=== PATIENT | female | born 1955 | race Caucasian/White ===

== ENCOUNTER 2021-03-06 12:45 | Inpatient (IN) | payer MEDICARE, OTHER ==
[~2021-03-06] VITALS: Ht 160 cm; Wt 97.1 kg
[2021-03-06] MEDS ORDERED: LOP25T PO (15:45)
[2021-03-06] MEDS ORDERED: ALPR-624 PO (15:45)
[2021-03-06] MEDS ORDERED: PANT40TA54 PO (15:45)
[2021-03-06] MEDS ORDERED: RIME75TA PO (15:45)
[2021-03-06] MEDS ORDERED: EST1T PO (15:45)
[2021-03-06] MEDS ORDERED: AMIT-189 PO (15:45)
[2021-03-06] MEDS ORDERED: HYDR-3965 PO (15:45)
[2021-03-06] MEDS ORDERED: WARF3TAB56 PO (15:45)
[2021-03-06] MEDS ORDERED: FLUO20CA39 PO (15:45)
[2021-03-06] MEDS ORDERED: TOLT2TAB20 PO (15:45)
[2021-03-06] MEDS ORDERED: CHOL500049 PO (15:45)
[2021-03-06 16:16] LABS: BASOPHILS # (AUTO) 0.1 X10'3 (0-0.2); BASOPHILS % (AUTO) 1.2 % (0-1); EOSINOPHILS # (AUTO) 0.2 X10'3 (0-0.9); EOSINOPHILS % (AUTO) 3.3 % (0-6); LYMPHOCYTES # (AUTO) 1.5 X10'3 (1.1-4.8); LYMPHOCYTES % (AUTO) 30.9 % (21-51); MEAN CORPUSCULAR HEMOGLOBIN 30.8 PG (27.0-31.0); MEAN CORPUSCULAR HGB CONC 33.6 g/dL (33.0-36.5); MEAN CORPUSCULAR VOLUME 91.4 FL (78-98); MEAN PLATELET VOLUME 9.2 FL (7.4-10.4); MONOCYTES # (AUTO) 0.3 X10'3 (0-0.9); MONOCYTES % (AUTO) 6.3 % (2-12); NEUTROPHILS # (AUTO) 2.9 X10'3 (1.8-7.7); NEUTROPHILS % (AUTO) 58.3 % (42-75); PRE OP HEMATOCRIT 44.8 % (35.0-45.0); PRE OP HEMOGLOBIN 15.1 g/dL (12.0-16.0); PRE OP PLATELET COUNT 238 X10'3 (140-440); RED CELL DISTRIBUTION WIDTH 15.9 % (11.5-14.5)
[2021-03-06 16:22] LABS: PARTIAL THROMBOPLASTIN TIME 40 SECONDS (22-32)
[2021-03-06 16:24] LABS: CLARITY,URINE CLOUDY (Clear); COLOR,URINE YELLOW (Yellow); GLUCOSE, URINE NEGATIVE (Neg); KETONES,URINE NEGATIVE (Neg); PROTEIN,URINE NEGATIVE (Neg); UA COLLECTION TYPE CLN CATCH MIDSTREAM
[2021-03-06 16:25] LABS: LEUKOCYTE ESTERASE ,URINE NEGATIVE (Neg); NITRITES, URINE NEGATIVE (Neg); OCCULT BLOOD,URINE TRACE-LYSED (Neg); UROBILINOGEN,URINE 0.2 E.U/dL (0.2-1.0)
[2021-03-06 16:25] LABS: ALBUMIN 3.6 G/DL (3.4-5.0); ALBUMIN/GLOBULIN RATIO 0.8 (1.1-1.5); ALKALINE PHOSPHATASE 73 IU/L (46-116); BLOOD UREA NITROGEN 19 MG/DL (7-18); BUN/CREATININE RATIO 17.4 (6.6-38.0); CALCIUM 9.4 MG/DL (8.5-10.1); CHLORIDE 104 MMOL/L (99-107); CREATININE 1.09 MG/DL (0.40-0.90); PRE OP ALT 23 U/L (30-65); PRE OP ANION GAP 10 (8-16); PRE OP AST 22 U/L (10-37); PRE OP BILIRUB, TOTAL 0.4 MG/DL (0.0-1.0); PRE OP GLUCOSE 98 MG/DL (70-104); PRE OP POTASSIUM 4.2 MMOL/L (3.4-5.1); PRE OP SODIUM 141 MMOL/L (135-145); TOTAL CARBON DIOXIDE 27.5 MMOL/L (24-32); TOTAL PROTEIN 8.2 G/DL (6.4-8.2); eGFR 50 ML/MIN
[2021-03-06 16:34] LABS: BACTERIA,URINE 2+ /HPF (Neg); RBC,URINE 0-2 /HPF (0-2); SQUAMOUS EPITHELIAL CELL,UR MANY /LPF (FEW); WBC,URINE 0-4 /HPF (0-4)
[2021-03-06 16:35] LABS: MUCUS STRANDS MODERATE /LPF (Neg)
[2021-03-13] VITALS (24 sets, daily range): BP systolic 104–150; BP diastolic 52–102
[2021-03-13] MEDS ORDERED: ringers solution, lacted 1,000 ML IV SCH ×2 (05:00→13:30)
[2021-03-13] MEDS ORDERED: tranexamic acid 650mg tablet PO ONE (05:30)
[2021-03-13] MEDS ORDERED: vancomycin 1,500 MG in NS 300ml IV soln IV ONE (05:30)
[2021-03-13] MEDS ORDERED: ceFAZolin 2gm in dextrose, iso 50 ML IV ONE (05:30)
[2021-03-13] MEDS ORDERED: DOCUMENT DATE & TIME OF BETA-BLOCKER PO ONE (05:30)
[2021-03-13] MEDS ORDERED: famotidine 20mg tablet PO ONE (05:30)
[2021-03-13 09:54] LABS: PARTIAL THROMBOPLASTIN TIME 30 SECONDS (22-32)
[2021-03-13] MEDS ORDERED: ketorolac trometh. 30mg/ml inj. ONE (10:34)
[2021-03-13] MEDS ORDERED: ROPIVAcaine 0.5% (5mg/ml) 30ml vial ONE ×2 (10:34→11:25)
[2021-03-13] MEDS ORDERED: cloNIDine hcl/PF 100mcg/ml inj ONE (10:56)
[2021-03-13] MEDS ORDERED: ondansetron/PF 4mg/2ml inj ONE ×2 (10:58→11:26)
[2021-03-13] MEDS ORDERED: neostigmine methylsulfate 1 MG/ML 10ml vial ONE (10:58)
[2021-03-13] MEDS ORDERED: glycopyrrolate 0.2mg/ml inj ONE (10:58)
[2021-03-13] MEDS ORDERED: sevoflurane 250ml liquid IH ONE (10:58)
[2021-03-13] MEDS ORDERED: fentaNYL/PF 50MCG/1 ML 2ML syringe ONE (11:03)
[2021-03-13] MEDS ORDERED: midazolam 1 mg/ML 2ml injection ONE (11:10)
[2021-03-13] MEDS ORDERED: rocuronium 10mg/ml inj IV ONE (11:26)
[2021-03-13] MEDS ORDERED: dexamethasone sod phosphate 4mg/ml inj. ONE (11:26)
[2021-03-13] MEDS ORDERED: LIDOcaine 2% (20mg/ml) 5ml vial ONE (11:26)
[2021-03-13] MEDS ORDERED: propofol inj 20 ML IV ONE (11:26)
[2021-03-13] MEDS ORDERED: sugammadex 200mg/2ml injection IV ONE (13:19)
--- NOTE | 2021-03-13 13:23 | NUR ---
Received from OR via BED IN STABLE CONDITION , accompanied by Anesthesiologist and REMOTE ENCODING CENTER MANAGER report given by REMOTE ENCODING CENTER MANAGER AND Anesthesiolgist. Addendum: 03/13/21 at 1442 by Patti Márquez RN Amended: Links added.
[2021-03-13] MEDS ORDERED: acetaminophen 325mg tablet PO PRN (13:25)
[2021-03-13] MEDS ORDERED: oxyCODONE IR 5mg (immed. release) tablet PO PRN (13:25)
[2021-03-13] MEDS ORDERED: magnesium hydroxide 30ml (MOM) UD suspension PO PRN (13:25)
[2021-03-13] MEDS ORDERED: bisacodyl 10mg suppository rectal RC PRN (13:25)
[2021-03-13] MEDS ORDERED: diphenhydrAMINE 25mg capsule PO PRN ×2 (13:25)
[2021-03-13] MEDS ORDERED: RIMEGEPANT SULFATE 75 MG PO PRN (13:25)
[2021-03-13] MEDS: potassium cl 20mEq in 1/2 NS 1,000 ML IV SCH ×2 (13:25→23:21)
[2021-03-13] MEDS ORDERED: ALPRAZolam 0.5mg tablet PO PRN (13:25)
[2021-03-13] MEDS ORDERED: HYDROmorphone 1 mg/ml syringe IV PRN (13:25)
[2021-03-13] MEDS ORDERED: ondansetron/PF 4mg/2ml inj IV PRN ×2 (13:25→13:30)
[2021-03-13] MEDS ORDERED: HYDROmorphone inj. 0.5 MG/0.5 ML DISP.SYRIN IV PRN (13:25)
[2021-03-13] MEDS ORDERED: proCHLORperazine 10 MG/2 ml inj IV PRN (13:30)
[2021-03-13] MEDS ORDERED: meperidine/PF 25mg/ml syringe IV PRN ×2 (13:30)
[2021-03-13] MEDS ORDERED: morphine 2 MG/ML inj. syringe IV PRN (13:30)
[2021-03-13] MEDS: meperidine/PF 25mg/ml syringe IV PRN ×2 (13:55→14:06)
[2021-03-13] MEDS: acetaminophen 325mg tablet PO SCH ×2 (14:00→19:50)
[2021-03-13] MEDS: morphine 4 MG/ML inj SYRINge IV PRN ×2 (14:46→14:57)
--- NOTE | 2021-03-13 14:59 | NUR ---
PAIN MEDS HAVE BEEN FOR RIGHT KNEE. Addendum: 03/13/21 at 1500 by Patti Márquez RN Amended: Links added.
--- NOTE | 2021-03-13 15:45 | NUR ---
Patient in room [facility]. I have received report from Amie RN and had the opportunity to ask questions and assume patient care.
--- NOTE | 2021-03-13 15:56 | NUR ---
PATIENT DISCHARGED FROM PACU IN STABLE CONDITION AFTER REPORT GIVEN TO NURSE TAKING OVER PATIENTS CARE. PATIENT TRANSFERRED VIA BED WITH TEZ AND MONICA. Addendum: 03/13/21 at 1605 by Patti Márquez RN Amended: Links added.
[2021-03-13] MEDS: ceFAZolin/D5W- 1GM premix 50 ML IV SCH ×2 (16:49→23:21)
--- NOTE | 2021-03-13 18:45 | NUR ---
Patient in room [facility]. I have received report from Lester REAGAN and nursing assoc [facility] and had the opportunity to ask questions and assume patient care.
--- NOTE | 2021-03-13 18:51 | NUR ---
Problems reprioritized. Patient report given, questions answered & plan of care reviewed with Cris.
--- NOTE | 2021-03-13 19:12 | NUR ---
Called MD with regards to bleeding thru earlier dressing change by day shift. MD advised to re-dress as needed, hold coumadin this evening, elevate extremity and keep iced.
[2021-03-13] MEDS: HYDROcodone/acetaminophen 5mg/325mg tablet PO SCH (19:40)
[2021-03-13] MEDS: oxybutynin 5mg tablet PO SCH ×2 (19:43→21:00)
[2021-03-13] MEDS: oxyCODONE IR 5mg (immed. release) tablet PO PRN ×2 (19:44→23:35)
[2021-03-13] MEDS: metoprolol tartrate 25mg tablet PO SCH (19:48)
[2021-03-13] MEDS ORDERED: vancomycin/NS 1 GM ADD-VANTAGE 250 ML IV SCH (20:00)
[2021-03-13] MEDS: gabapentin 300mg capsule PO SCH (20:51)
[2021-03-13] MEDS ORDERED: warfarin 5mg tablet PO ONE (21:00)
[2021-03-13] MEDS ORDERED: sennosides 8.6mg tablet PO SCH (21:00)
--- NOTE | 2021-03-13 21:00 | NUR ---
Coumadin was held tonight per .
--- NOTE | 2021-03-13 22:58 | NUR ---
Student documentation: I have reviewed interventions, assessments performed and documented by [facility].
[2021-03-14] VITALS: BP 142/77
[2021-03-14] MEDS: acetaminophen 325mg tablet PO SCH ×3 (03:07→14:00)
[2021-03-14 05:00] VITALS: BP 125/54
[2021-03-14] MEDS: potassium cl 20mEq in 1/2 NS 1,000 ML IV SCH ×2 (05:25→13:25)
[2021-03-14 06:21] LABS: BASOPHILS # (AUTO) 0.1 X10'3 (0-0.2); BASOPHILS % (AUTO) 0.7 % (0-1); EOSINOPHILS % (AUTO) 0 % (0-6); HEMATOCRIT 32.7 % (35.0-45.0); HEMOGLOBIN 11.1 g/dl (12.0-16.0); LYMPHOCYTES # (AUTO) 0.8 X10'3 (1.1-4.8); LYMPHOCYTES % (AUTO) 11.2 % (21-51); MEAN CORPUSCULAR HEMOGLOBIN 31.2 PG (27.0-31.0); MEAN CORPUSCULAR VOLUME 91.6 FL (78-98); MEAN PLATELET VOLUME 9.5 FL (7.4-10.4); MONOCYTES # (AUTO) 0.6 X10'3 (0-0.9); MONOCYTES % (AUTO) 8.1 % (2-12); PLATELET COUNT 180 X10'3 (140-440); RED BLOOD COUNT 3.57 X10'6 (4.20-5.60); RED CELL DISTRIBUTION WIDTH 15.1 % (11.5-14.5); WHITE BLOOD COUNT 7.6 X10'3 (4.5-11.0)
[2021-03-14 06:25] LABS: ANION GAP 9 (8-16); CHLORIDE 108 MMOL/L (99-107); POTASSIUM 4.5 MMOL/L (3.5-5.1); SODIUM 143 MMOL/L (135-145); TOTAL CARBON DIOXIDE 26.5 MMOL/L (24-32)
--- NOTE | 2021-03-14 06:26 | NUR ---
Problems reprioritized. Patient report given, questions answered & plan of care reviewed with Abel REAGAN.
--- NOTE | 2021-03-14 06:30 | NUR ---
Problems reprioritized. Patient report given, questions answered & plan of care reviewed with Abel REAGAN.
--- NOTE | 2021-03-14 06:40 | NUR ---
Patient in room [facility]. I have received report from NADJA REAGAN and had the opportunity to ask questions and assume patient care.
[2021-03-14] MEDS ORDERED: FLUoxetine 20mg capsule PO SCH (08:00)
[2021-03-14] MEDS ORDERED: amitriptyline 25mg tablet PO SCH (08:00)
[2021-03-14] MEDS ORDERED: pantoprazole 40mg Tablet.DR PO SCH (08:00)
[2021-03-14] MEDS ORDERED: cholecalciferol (vitamin D3) 1,000 unit (25mcg) tablet PO SCH (08:00)
[2021-03-14] MEDS: oxybutynin 5mg tablet PO SCH ×2 (08:29→12:51)
[2021-03-14] MEDS: metoprolol tartrate 25mg tablet PO SCH (08:30)
[2021-03-14] MEDS: gabapentin 300mg capsule PO SCH ×2 (08:31→12:52)
[2021-03-14] MEDS: HYDROcodone/acetaminophen 5mg/325mg tablet PO SCH (08:32)
[2021-03-14 08:43] VITALS: BP 116/52
[2021-03-14 11:00] VITALS: BP 113/53
[2021-03-14] MEDS: oxyCODONE IR 5mg (immed. release) tablet PO PRN (12:56)
--- NOTE | 2021-03-14 14:30 | NUR ---
PT WAS STABLE FOR DISCHARGE, IV WAS DC AND INTACT, ALL PT DISCHARGE WAS GONE OVER WITH PT AND UNDERSTOOD, PT BELONGINGS WERE TAKEN,A ND PT WAS WHEELED DOWN TO LOBBY AND LEFT IN A PRIVATE VEHICLE WITH .
[2021-03-14] MEDS ORDERED: celeCOXIB 100mg capsule PO SCH (20:00)
[2021-03-14] MEDS ORDERED: warfarin 3mg tablet PO SCH (21:00)
[2021-03-15] MEDS ORDERED: acetaminophen 325mg tablet PO PRN (13:25)
== END 2021-03-14 14:28 | disposition home or self-care (01) | DRG 470 ==
LOC: UNDOADMIN 03-13 07:36 → PAS IN 03-13 07:36 → SUR 3N 03-13 15:40
PROVIDERS: ADMIT Orthopaedic Surgery; ATTEND Orthopaedic Surgery
PROC: 8E0YXBZ Computer Assisted Procedure of Lower Extremity (ICD-10-PCS; 2021-03-13)
PROC: 8E0Y0CZ Robotic Assisted Procedure of Lower Extremity, Open Approach (ICD-10-PCS; 2021-03-13)
PROC: 3E0T3BZ Introduction of Anesthetic Agent into Peripheral Nerves and Plexi, Percutaneous Approach (ICD-10-PCS; 2021-03-13)
PROC: 0SRC0J9 Replacement of Right Knee Joint with Synthetic Substitute, Cemented, Open Approach (ICD-10-PCS; principal; 2021-03-13 10:58)
DX: M17.11 Unilateral primary osteoarthritis, right knee (principal); D62 Acute posthemorrhagic anemia; Z79.899 Other long term (current) drug therapy
CPT/HCPCS: 36415; 80051; 80053; 81001; 82948; 85025; 85610; 85730; 87081; 93005; 97110; 97161; 97530; A4215; A7000; C1713; C1758; C1776; C9399; G0378; J0690; J0735; J1100; J1885; J2001; J2175; J2250; J2270; J2405; J2704; J2710; J2795; J3010; J3370; J3480; J3490; J7040; J7120; U0003; U0005